=== PATIENT | female | born 1930 | race Caucasian/White ===

== ENCOUNTER → 2018-09-14 | Outpatient (CLI) | payer OTHER ==
[~2018-09-14] MED LIST: ADULT LOW DOSE81 MG PO; ALPRAZOLAM 0.0.25 M1 PO; CALCIUM PO; COZAAR 50 MG TA50 M1 PO; CRESTOR5 MG PO; LEVOTHYROXINE PO; NORCO 7.5-3251 EACH PO; TAMSULOSIN HCL0.4 M1 PO
== END ==
LOC: M.RAD 04-29 13:00
DX: R92.8 Other abnormal and inconclusive findings on diagnostic imaging of breast (principal)